=== PATIENT | male | born 1965 | race Caucasian/White ===

== ENCOUNTER → 2020-08-17 | Outpatient (CLI) | payer BC, OTHER | LOC: RAD 12:33 | DX: R07.9 Chest pain, unspecified (principal); R06.00 Dyspnea, unspecified; R06.02 Shortness of breath | CPT/HCPCS: 71046 ==

== ENCOUNTER → 2020-12-09 | Outpatient (CLI) | payer BC | LOC: RAD 15:33 | DX: N40.0 Benign prostatic hyperplasia without lower urinary tract symptoms (principal); R14.3 Flatulence; N20.0 Calculus of kidney | CPT/HCPCS: 74018 ==